=== PATIENT | female | born 1990 | race Caucasian/White ===

== ENCOUNTER 2019-05-26 08:45 | Emergency (ER) | payer SELFPAY ==
--- NOTE | 2019-05-26 09:56 | CT ---
EXAM: CT cervical spine PROVIDED CLINICAL HISTORY: Neck pain status post injury COMPARISON: None FINDINGS: No evidence for fracture or traumatic subluxation. No prevertebral soft tissue swelling apparent. Vi sualized lung apices appear clear. IMPRESSION: No evidence for fracture or traumatic subluxation.
== END 2019-05-26 10:20 | disposition home or self-care (01) ==
LOC: ERS 08:45
DX: S16.1XXA Strain of muscle, fascia and tendon at neck level, initial encounter (principal); W17.89XA Other fall from one level to another, initial encounter
CPT/HCPCS: 72125